=== PATIENT | male | born 1930 | race Caucasian/White ===

== ENCOUNTER 2017-08-28 07:31 | Emergency (ER) | payer MEDICARE, OTHER ==
--- NOTE | 2017-08-28 08:46 | XRAY Report ---
EXAM: CHEST RADIOGRAPHY EXAM DATE: 08/28/2017 08:20 AM. CLINICAL HISTORY: Cough with thoracic back pain. COMPARISON: 09/02/2011. TECHNIQUE: 2 views. FINDINGS: Lungs/Pleura: The patchy opacity in the posterior lateral right lower chest measured 6.8 cm in AP dim ension, and 3.2 cm transversely, slightly to moderately increased. No new focal opacities evident. No left pleural effusion. No pneumothorax. Normal volumes. Mediastinum: Heart and mediastinal contours are unremarkable. IMPRESSION: Interval slightly to moderately increased the patchy opacity in the posterior lateral rig ht lower chest, suggesting interval worsening infiltrate process in the right lower lobe or increased size of loculated pleural effusion; continued chest imaging follow up or further evaluation with [facility] CT using IV contrast is recommended. BERTHA Referring Provider Line: [phone] SITE ID: [id number]
--- NOTE | 2017-08-28 08:46 | XRAY Preliminary Report ---
Exam: XR CHEST 2 VIEW X-RAY IMPRESSION: Interval slightly to moderately increased the patchy opacity in the posterior lateral rig ht lower chest, suggesting interval worsening infiltrate process in the right lower lobe or increased size of loculated pleural effusion; continued chest imaging follow up or further evaluation with [facility] CT using IV contrast is recommended. [facility] SITE ID: [id number]
--- NOTE | 2017-08-28 09:17 | ED Physician Documentation ---
History of Present Illness - Stated complaint Stated Complaint: COUGH/BACK PAIN - Chief complaint Chief Complaint: Back Pain - History obtained from History obtained from: Patient - Additonal information Additional information: The patient is an 87-year-old male who presents with a dry cough of about one month's duration. He denies chest pain or fever. He presents now because for the past 4 days he has experienced spasms in his thoracic back. He has a history of right pleural effusion, but is concerned about the possibility of aortic dissection or thoracic aneurysm. His pain did not start suddenly, but has been gradual in onset. It is associated with his cough. He denies shortness of breath, abdominal pain, nausea, vomiting, or lightheadedness. His past medical history is significant for hypertension, but he refuses to take antihypertensive medication, stating his blood pressure as high only when being checked by medical personnel. He states his blood pressure is fine when he checks it himself on a public blood pressure machine. He does not like the way antihypertensive medication makes him feel. Review of Systems Constitutional: denies: Fever, Fatigue Ears: denies: Tinnitus/ringing Nose: denies: Congestion Throat: denies: Sore throat Cardiac: denies: Chest pain / pressure, Palpitations Respiratory: reports: Cough. denies: Dyspnea GI: denies: Abdominal Pain, Nausea, Vomiting : denies: Dysuria Skin: denies: Rash Musculoskeletal: reports: Back pain (Right thoracic back spasms.). denies: Neck pain, Extremity swelling Neurologic: denies: Focal weakness, Numbness, Headache PD PAST MEDICAL HISTORY - Past Medical History Cardiovascular: Hypertension Respiratory: Other (Right pleural effusion.) Endocrine/Autoimmune: None Derm: Herpes zoster - Past Surgical History Past Surgical History: No - Social History Does the pt smoke?: No Smoking Status: Never smoker Does the pt drink ETOH?: Yes Does the pt have substance abuse?: No - Immunizations Immunizations are current?: Yes PD ED PE NORMAL - Vitals Vital signs reviewed: Yes (hypertensive, with an initial blood pressure 206/99.) - General General: Alert and oriented X 3, Well developed/nourished - HEENT HEENT: Atraumatic - Neck Neck: No adenopathy, No JVD - Cardiac Cardiac: RRR, No murmur - Respiratory Respiratory: No respiratory distress, Clear bilaterally - Abdomen Abdomen: Soft, Non tender - Back Back: No CVA TTP - Derm Derm: No rash - Extremities Extremities: No edema, No calf tenderness / cord - Neuro Neuro: Alert and oriented X 3, No motor deficit, No sensory deficit Results - Vitals Vitals: Oxygen O2 Source Room air - EKG (time done) 09:09 Rate: Rate (enter#) (72) Rhythm: Sinus bradycardia, NSR, LAE [place]: Normal QRS: LVH Compare to prior EKG: Old EKG unavailable Computer interpretation: Agree with computer - Rads (name of study) 2-view CXR Radiology: Prelim report reviewed, EMP read contemporaneously, See rad report ( Interval slightly to moderately increased patchy opacity in the posterior lateral right lower chest, suggesting interval worsening infiltrate process in the right lower lobe or increased size of loculated pleural effusion; continued chest imaging follow-up or further evaluation with chest CT using IV contrast is recommended.) PD MEDICAL DECISION MAKING - ED course Complexity details: reviewed results, re-evaluated patient, considered differential, d/w patient ED course: The patient's presentation is significant for a right pleural effusion, which is larger than on previous chest x-ray from 2012. His presentation does not suggest pneumonia or empyema. I discussed with him further imaging with CT scan of the chest. He declines having that study performed. I suspect his right thoracic back spasm is related to the pleural effusion and cough. I performed bedside ultrasound to image his abdominal aorta, and found no evidence of aneurysm, and I do not think he has a thoracic aortic dissection. His electrocardiogram reveals no evidence of acute myocardial infarction, and his symptoms do not suggest myocardial ischemia as the cause of his symptoms. In addition the patient has significant hypertension. However he expresses his desire to not address that issue, insisting that his blood pressure is normally not significantly elevated. He knows that doctors routinely try to convince him to take medication for his high blood pressure, but he is not willing to do so. I discussed with him the results of the x-ray, EKG, and bedside ultrasound. I advised him to follow up with primary physician, and discussed potentially worrisome signs or symptoms that should prompt reevaluation in the emergency department. Departure - Departure Disposition: 01 Home, Self Care Clinical Impression: Pleural effusion, right Hypertension Qualifiers: Hypertension type: unspecified Qualified Code(s): I10 - Essential (primary) hypertension Condition: Stable Instructions: ED Effusion Pleural Comments: Consider CT scan of the chest with IV contrast for further evaluation of the right pleural effusion. Consider establishing care with primary physician. Return to the emergency department if you develop increasing chest or back pain , shortness of breath, or otherwise worsening symptoms. Discharge Date/Time: 08/28/17 09:43
[2017-08-28 09:45] VITALS: BP 195/122
== END 2017-08-28 09:43 | disposition home or self-care (01) ==
LOC: ED 07:31
DX: J90 Pleural effusion, not elsewhere classified (principal); I10 Essential (primary) hypertension
CPT/HCPCS: 71046; 93005; 99283; 99284

== ENCOUNTER 2017-10-02 10:56 | Emergency (ER) | payer MEDICARE, OTHER ==
--- NOTE | 2017-10-02 12:01 | ED Physician Documentation ---
PD HPI CHEST PAIN - Stated complaint Stated Complaint: SOA - Chief complaint Chief Complaint: Resp - History obtained from History obtained from: Patient - History of Present Illness Timing - onset: Other (Very pleasant 87-year-old gentleman with a recurrent pleural effusion, he says he has had a completely drained before maybe 20 years ago. He was seen here last month and noted to have a small to moderate right pleural effusion and followed up with his physician who ordered a chest CT over the last few days but has not been done yet. However he comes in today with increasing fatigue, dry cough and significant shortness of breath. There is no associated chest pain and only minimal pedal edema with it.) Review of Systems Ten Systems: 10 systems reviewed and negative Constitutional: denies: Fever, Chills Cardiac: reports: Pedal edema (mild). denies: Chest pain / pressure, Palpitations Respiratory: reports: Dyspnea, Cough GI: denies: Abdominal Pain, Nausea, Vomiting PD PAST MEDICAL HISTORY - Past Medical History Past Medical History: Yes Cardiovascular: Hypertension Respiratory: Other Endocrine/Autoimmune: None Derm: Herpes zoster - Past Surgical History Past Surgical History: No - Present Medications Home Medications: Ambulatory Orders Medication Instructions Recorded Confirmed No Known Home Medications [No 10/02/17 10/02/17 Known Home Medications] - Allergies Allergies/Adverse Reactions: Allergies Allergy/AdvReac Type Severity Reaction Status Date / Time No Known Drug Allergies Allergy Verified 10/02/17 11:07 - Social History Does the pt smoke?: No Smoking Status: Never smoker Does the pt drink ETOH?: Yes Does the pt have substance abuse?: No - Family History Family history: reports: Non contributory - Immunizations Immunizations are current?: Yes PD ED PE NORMAL - Vitals Vital signs reviewed: Yes - General General: Alert and oriented X 3, No acute distress - HEENT HEENT: PERRL, EOMI - Neck Neck: Supple, no meningeal sign, No bony TTP - Cardiac Cardiac: RRR, No murmur - Respiratory Respiratory: No respiratory distress, Clear bilaterally - Abdomen Abdomen: Normal bowel sounds, Soft, Non tender - Back Back: No CVA TTP, No spinal TTP - Derm Derm: Normal color, Warm and dry - Extremities Extremities: No edema, No calf tenderness / cord - Neuro Neuro: Alert and oriented X 3, Normal speech - Psych Psych: Normal mood, Normal affect Results - Vitals Vitals: Vital Signs - 24 hr 10/02/17 10/02/17 11:00 12:09 Temperature 36.8 C Heart Rate 101 H 99 Respiratory 24 18 Rate Blood Pressure 131/71 H 111/64 O2 Saturation 98 100 Oxygen O2 Source Room air - EKG (time done) 1100 Rate: Rate (enter#) (97) Rhythm: NSR (with PAC) [place]: Normal Intervals: Normal [place] QRS: LVH Ischemia: Other (He has significant ST depression, especially inferior and lateral which is new since the comparison EKG dated August 28 of this year, he also has ST elevation in aVR.) Computer interpretation: Agree with computer - Labs Labs: Laboratory Tests 10/02/17 10/02/17 10/02/17 11:55 11:55 11:55 WBC 11.8 H RBC 4.08 L Hgb 11.6 L Hct 35.3 L MCV 86.6 MCH 28.5 MCHC 32.9 RDW 14.8 Plt Count 258 MPV 6.9 L Neut # 10.3 H Lymph # 0.7 L [place] # 0.7 Eos # 0.0 Baso # 0.1 Absolute Nucleated RBC 0.00 Nucleated RBC % 0.0 PT 14.5 H INR 1.3 H Sodium 133 L Potassium 4.1 Chloride 96 L Carbon Dioxide 24 Anion Gap 13.0 BUN 24 H Creatinine 1.3 H Estimated GFR (MDRD) 52 L Glucose 126 H Calcium 8.9 Total Bilirubin 1.3 H AST 112 H ALT 45 Alkaline Phosphatase 70 Troponin I Total Protein 7.4 Albumin 3.7 Globulin 3.7 Albumin/Globulin Ratio 1.0 Lipase 21 L 10/02/17 11:55 WBC RBC Hgb Hct MCV MCH MCHC RDW Plt Count MPV Neut # Lymph # [place] # Eos # Baso # Absolute Nucleated RBC Nucleated RBC % PT INR Sodium Potassium Chloride Carbon Dioxide Anion Gap BUN Creatinine Estimated GFR (MDRD) Glucose Calcium Total Bilirubin AST ALT Alkaline Phosphatase Troponin I 13.90 H* Total Protein Albumin Globulin Albumin/Globulin Ratio Lipase PD MEDICAL DECISION MAKING - ED course ED course: 87-year-old gentleman with history of pleural effusion and increasing waxing and waning fatigue over the last few days but no chest pain, he is short of breath. On examination he seems well but his EKG is changed and this is corroborated by a troponin of 13.9 confirming the diagnosis of non-STEMI. He was given aspirin, oral beta blockade and I spoke with Dr. Benedict at [facility] who recommended transfer to their ICU under the care of their hospitalist. He also recommended heparin, a statin and an GORDON inhibitor which were ordered. I canceled the CT of the chest, he may get another dye load and I do not want him to get to with borderline renal function. The CT seems less pressing now. Call to the hospitalist at [facility] for transfer at 12:[address] Robb the hospitalist there at 1:05 PM. - Critical Care Time(min): 45 Time Includes: Direct patient care, Review records, Reassess patient, Document care, Coordinate care, Medical consult Procedures included in critical care time: Peripheral IV Procedures excluded from critical care time: EKG Departure - Departure Disposition: 02 Transfer Acute Care Hosp Clinical Impression: NSTEMI (non-ST elevated myocardial infarction) Dyspnea Qualifiers: Dyspnea type: other forms of dyspnea Qualified Code(s): R06.09 - Other forms of dyspnea Condition: Critical
[2017-10-02 12:02] LABS: BASOPHILS # (AUTO) 0.1 10^3/uL (0.0-0.1); BASOPHILS % (AUTO) 0.6 %; EOSINOPHILS % (AUTO) 0.2 %; HGB - HEMOGLOBIN 11.6 g/dL (14.0-18.0); LYMPHOCYTES # (AUTO) 0.7 10^3/uL (1.5-3.5); LYMPHOCYTES % (AUTO) 5.9 %; MEAN CORPUSCULAR HEMOGLOBIN 28.5 pg (27.0-31.0); MEAN CORPUSCULAR HGB CONC 32.9 g/dL (32.0-36.0); MEAN CORPUSCULAR VOLUME 86.6 fL (80.0-94.0); MEAN PLATELET VOLUME 6.9 fL (7.4-11.4); MONOCYTES # (AUTO) 0.7 10^3/uL (0.0-1.0); MONOCYTES % (AUTO) 6.1 %; NEUTROPHILS # (AUTO) 10.3 10^3/uL (1.5-6.6); NEUTROPHILS % (AUTO) 87.2 %; PLT - PLATELET COUNT 258 10^3/uL (130-450); RED BLOOD COUNT 4.08 10^6/uL (4.70-6.10); RED CELL DISTRIBUTION WIDTH 14.8 % (12.0-15.0); WHITE BLOOD COUNT 11.8 x10^3/uL (4.8-10.8)
[2017-10-02 12:15] LABS: ALBUMIN 3.7 g/dL (3.2-5.5); BILIRUBIN,TOTAL 1.3 mg/dL (0.2-1.0); CALCIUM 8.9 mg/dL (8.5-10.3); CREATININE 1.3 mg/dL (0.6-1.2); TOTAL PROTEIN 7.4 g/dL (6.7-8.2)
[2017-10-02 12:17] LABS: INR 1.3 (0.8-1.2); PT - PROTHROMBIN TIME 14.5 secs (9.9-12.6)
[2017-10-02] MEDS ORDERED: ASPIRIN CHEW 81 MG TABLET PO STA (12:32)
[2017-10-02] MEDS ORDERED: METOPROLOL TARTRATE 50 MG TABLET PO STA (12:32)
[2017-10-02] MEDS ORDERED: HEPARIN 25000UNITS/500ML (D5W) 25,000 UNIT/500 ML BAG IV STA (12:55)
[2017-10-02] MEDS ORDERED: LISINOPRIL 5 MG TABLET PO STA (12:55)
[2017-10-02] MEDS ORDERED: ATORVASTATIN 40 MG TABLET PO STA (12:55)
[2017-10-02] MEDS ORDERED: HEPARIN 5,000 UNIT/ML VIAL IVP STA (12:55)
--- NOTE | 2017-10-02 13:44 | XRAY Report ---
EXAM: CHEST RADIOGRAPHY EXAM DATE: 10/02/2017 12:46 PM. CLINICAL HISTORY: Dyspnea. COMPARISON: None. TECHNIQUE: 1 view. FINDINGS: Lungs/Pleura: . [id number] right pleural effusion. This may be loculated since this is latera lly positioned. Right lower lobe infiltrate or atelectasis. Diskoid atelectasis right midlung. Right apical pleural fluid or thickening Mild left basilar infiltrate or atelectasis with small left effusi on. Mediastinum: Within exam limitations, the cardiomediastinal contour is normal. Other: None. IMPRESSION: 1. Small to moderate right pleural effusion which may be loculated. Right lower lobe infiltrate or at electasis. 2. Mild left basilar infiltrate or atelectasis with small effusion [facility] Referring Provider Line: [phone] SITE ID: [id number]
--- NOTE | 2017-10-02 13:44 | XRAY Preliminary Report ---
Exam: XR CHEST 1 VIEW X-RAY IMPRESSION: 1. Small to moderate right pleural effusion which may be loculated. Right lower lobe infiltrate or at electasis. 2. Mild left basilar infiltrate or atelectasis with small effusion [facility] SITE ID: [id number]
[2017-10-02] MEDS ORDERED: SODIUM CHLORIDE 0.9% 500 ML IV ONE (14:34)
[2017-10-02 14:40] VITALS: BP 91/63
== END 2017-10-02 15:15 | disposition short-term general hospital (02) ==
LOC: ED 10:56
DX: I21.4 Non-ST elevation (NSTEMI) myocardial infarction (principal); R06.02 Shortness of breath; I10 Essential (primary) hypertension
CPT/HCPCS: 36415; 71045; 80053; 83690; 84484; 85025; 85610; 93005; 96374; 99284; 99291; A9270

== ENCOUNTER 2017-10-02 15:15 | Outpatient (CLI) | payer MEDICARE, OTHER | END 2017-10-02 15:16 | disposition short-term general hospital (02) | LOC: EMS 15:15 | PROVIDERS: ATTEND Surgery | DX: I21.4 Non-ST elevation (NSTEMI) myocardial infarction (principal) | CPT/HCPCS: A0425; A0426 ==